=== PATIENT | female | born 1960 | race Caucasian/White ===

== ENCOUNTER 2018-12-30 06:30 | Day surgery (SDC) | payer OTHER ==
[2018-12-30] MEDS ORDERED: Lidocaine 1% with EPINEPHrine 1:100,000 50 ML MDV ONE (06:52)
[2018-12-30] MEDS ORDERED: Bupivacaine 0.5% 50 ML MDV ONE (06:52)
[2018-12-30] MEDS ORDERED: Sodium Chloride 0.9% 1,000 ML IV SCH (07:00)
[2018-12-30] MEDS ORDERED: metroNIDAZOLE/Normal Saline 500 MG in Premix Bag 1 BAG IV ONE (07:30)
[2018-12-30] MEDS ORDERED: fentaNYL 100 MCG/2 ML SDV ONE (07:30)
[2018-12-30] MEDS ORDERED: ceFAZolin 2 GM in Premix Bag 1 BAG IV ONE (07:30)
[2018-12-30] MEDS ORDERED: Propofol 200 MG/20 ML SDV ONE ×3 (07:30→08:27)
[2018-12-30] MEDS ORDERED: Midazolam 1 MG/ML 2 ML SDV ONE (07:31)
[2018-12-30] MEDS ORDERED: Ropivacaine 34 ML, dexAMETHasone 8 MG, EPINEPHrine 0.4 MG, Sodium Chloride 0.9% 43.6 ML NERVRT SCH ×4 (08:00)
[2018-12-30] MEDS ORDERED: Ondansetron 4 MG/2 ML SDV ONE (08:02)
[2018-12-30] MEDS ORDERED: Ketorolac 60 MG/2 ML SDV ONE (08:02)
[2018-12-30] MEDS ORDERED: Dexamethasone 4 MG/ML SDV ONE (08:02)
[2018-12-30] MEDS ORDERED: Acetaminophen/HYDROcodone 325-10 MG Tab PO PRN (09:09)
[2018-12-30] MEDS ORDERED: fentaNYL 100 MCG/2 ML SDV IVPUSH ONE (09:14)
[2018-12-30] MEDS ORDERED: diphenhydrAMINE 25 MG Cap PO ONE (10:01)
--- NOTE | 2018-12-30 11:44 | OR ---
DATE OF PROCEDURE: 12/30/2018 SURGEON: Arsen Lozano MD PROCEDURES: 1. Repair of incisional hernia, right groin. 2. Esophagogastroduodenoscopy. FINDINGS: 1. Incisional hernia and inguinal hernia noted, right groin. 2. Normal EGD with very small hiatal hernia. COMPLICATIONS: None. ESTATE ADMINISTRATOR: None. ANESTHESIA: MAC/local. RISKS: Risks, benefits, alternatives, and limitations including, but not limited to infection, bleeding, and injury to abdominal structures were explained to the patient, who wished to proceed. PROCEDURE IN DETAIL: The patient was placed in a supine position. The previous incision was opened and extended slightly lateral. Electrocautery was used to carry it down to the external oblique aponeurosis, which was opened with a 15 blade. Immediately superior to this area, a small incisional hernia was noted. This was to be repaired second. This was repaired by suturing a small piece of mesh with an interrupted 0 Vicryl suture. After the external oblique aponeurosis was opened, the hernia was readily identified. This was repaired with a plug and patch system. This was noted to contain fat. This plug was then sutured in multiple 0 Vicryl locations along with an interrupted Vicryl 3-0 sutures for the overlay patch. Minimal bleeding was controlled by electrocautery. There was significant amount of scar tissue noted from previous surgery. Once the overlay mesh was repaired and both hernias were repaired, the external oblique aponeurosis was reapproximated with 3-0 Vicryl. Subcutaneous tissue was closed with 3-0 Vicryl and skin was closed with 4-0 Vicryl. The EGD was then performed next. The EGD scope was introduced and advanced atraumatically into the second part of the duodenum. Scope was brought back into the stomach. No evidence of duodenitis or evidence of gastric ulcer was noted. On retroflex, a very small hiatal hernia was noted. The GE junction was normal. The remainder of the esophagus was normal. The patient tolerated the procedure well. Arsen Lozano MD /[id number]
--- NOTE | 2018-12-30 11:46 | OR ---
DATE OF PROCEDURE: 12/30/2018 SURGEON: Arsen Lozano MD PROCEDURE: Transversus abdominis plane block. COMPLICATIONS: None. BALLISTICS PROFESSOR: None. RISKS: Risks, benefits, alternatives, and limitations including, but not limited to, infection, bleeding, and injury to abdominal structures were explained to the patient, and they wished to proceed. PROCEDURE IN DETAIL: The patient was placed in a supine position. The right transversus plane was identified first. The patient had a mildly morbidly obese habitus. Nonetheless, the needle was introduced under ultrasound guidance into the transversus plane and the entire contents were injected. The left side was then performed in same manner, same fashion, same technique, and in the same sequence using the same equipment. Dressings were applied. The patient tolerated the procedure well. Arsen Lozano MD /[id number]
== END 2018-12-30 11:05 | disposition home or self-care (01) ==
LOC: JP.SDS 06:30
PROVIDERS: ATTEND Surgery
DX: K43.0 Incisional hernia with obstruction, without gangrene (principal); K40.90 Unilateral inguinal hernia, without obstruction or gangrene, not specified as recurrent; K44.9 Diaphragmatic hernia without obstruction or gangrene; E66.01 Morbid (severe) obesity due to excess calories; G89.18 Other acute postprocedural pain; Z88.1 Allergy status to other antibiotic agents; Z88.5 Allergy status to narcotic agent; Z68.26 Body mass index [BMI] 26.0-26.9, adult
CPT/HCPCS: A9270-GY; C1781; J0171; J0690; J1100; J1885; J2250; J2405; J2704; J2795; J3010; J3490; J7030; J7050

== ENCOUNTER 2019-01-07 06:55 | Day surgery (SDC) | payer OTHER ==
[2019-01-07] MEDS ORDERED: Lidocaine 1% with EPINEPHrine 1:100,000 50 ML MDV ONE (07:05)
[2019-01-07] MEDS: Sodium Chloride 0.9% 1,000 ML IV SCH (07:39)
[2019-01-07] MEDS ORDERED: Propofol 200 MG/20 ML SDV ONE ×2 (08:27→09:07)
[2019-01-07] MEDS ORDERED: fentaNYL 100 MCG/2 ML SDV ONE (08:27)
[2019-01-07] MEDS ORDERED: Midazolam 1 MG/ML 2 ML SDV ONE (08:27)
[2019-01-07] MEDS: ceFAZolin 2 GM in Premix Bag 1 BAG IV ONE (08:35)
[2019-01-07] MEDS ORDERED: Dexamethasone 4 MG/ML SDV ONE (08:47)
[2019-01-07] MEDS: hydrOXYzine HCl 100 MG/2 ML SDV IM ONE (09:03)
[2019-01-07] MEDS: Ropivacaine 34 ML, dexAMETHasone 8 MG, EPINEPHrine 0.4 MG, Sodium Chloride 0.9% 43.6 ML NERVRT SCH ×4 (09:04)
[2019-01-07] MEDS: Bupivacaine 0.5% 50 ML MDV ONE (09:18)
[2019-01-07] MEDS: fentaNYL 100 MCG/2 ML SDV IVPUSH ONE (10:17)
--- NOTE | 2019-01-07 10:57 | OR ---
DATE OF PROCEDURE: 01/07/2019 SURGEON: Arsen Lozano MD PROCEDURES: 1. Right groin exploration, reopening of recent abdominal right lower quadrant incision. 2. Removal of polypropylene mesh and Vicryl sutures. 3. Repair of inguinal and incisional hernias with Prolene sutures. FINDINGS: 1. No evidence of infection. 2. Immediate improvement of erythema around wound with mesh and Vicryl stitch removal. INDICATIONS: A pleasant 58-year-old female, who underwent hernia repair without difficulty. The patient developed an almost immediate allergic reaction with erythema around the wound and urticaria and hive-like reaction throughout all her skin. This was initially treated with Benadryl, but she was refractory to this. The patient was counseled on the risks, benefits, alternatives, and limitations. She elected for mesh removal. When we discussed the risks, benefits, alternatives, and limitations, we included infection, bleeding, hernia recurrence, injury to bowel and other vascular structures. She understands these risks and wished to proceed. PROCEDURE IN DETAIL: The patient was placed in supine position. The previous incision was opened. As we went through the layers, all Vicryl sutures were removed. Three pieces of mesh were identified. Their supporting Vicryl sutures were removed. There was no evidence of hernia recurrence. No seroma. No hematoma. No evidence of infection. No drainage. The hernia had not recurred. These 3 pieces of mesh were removed without difficulty. The hernias were then repaired with interrupted 2-0 prolene sutures. The subcutaneous tissues were approximated with Prolene sutures, and the skin was closed with Monocryl suture. It is unclear if the Vicryl or the polypropylene was the offending agent; however, all the sources have been removed. Dressings were applied. The patient tolerated the procedure well. Arsen Lozano MD /[id number]
== END 2019-01-07 11:40 | disposition home or self-care (01) ==
LOC: JP.SDS 06:55
PROVIDERS: ATTEND Surgery
DX: L76.82 Other postprocedural complications of skin and subcutaneous tissue (principal); K40.90 Unilateral inguinal hernia, without obstruction or gangrene, not specified as recurrent; K43.2 Incisional hernia without obstruction or gangrene; Z98.890 Other specified postprocedural states
CPT/HCPCS: 49505; 49560; J0171; J0690; J1100; J2250; J2704; J2795; J3010; J3410; J3490; J7030; J7050